=== PATIENT | female | born 1990 | race Hispanic/Latino ===

== ENCOUNTER 2017-02-09 06:01 | Emergency (ER) | payer OTHER ==
[2017-02-09] MEDS ORDERED: MOTRIN PO ONE (08:15)
[2017-02-09] MEDS ORDERED: BOOSTRIX IM ONE (08:15)
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
[2017-02-09 09:00] VITALS: BP 133/63
== END 2017-02-09 09:00 | disposition home or self-care (01) ==
LOC: ED 06:01
DX: S40.021A Contusion of right upper arm, initial encounter (principal); S80.212A Abrasion, left knee, initial encounter; S60.511A Abrasion of right hand, initial encounter; X58.XXXA Exposure to other specified factors, initial encounter; Y93.89 Activity, other specified; Y99.8 Other external cause status; Y92.89 Other specified places as the place of occurrence of the external cause
CPT/HCPCS: 81025; 90471; 90715